=== PATIENT | female | born 1955 | race Asian ===

== ENCOUNTER → 2018-09-18 | Outpatient (CLI) | payer BC | END | disposition home or self-care (01) | LOC: LAB SHORT 15:25 → LAB 15:25 | DX: H66.92 Otitis media, unspecified, left ear (principal) | CPT/HCPCS: 87070; 87205 ==

== ENCOUNTER → 2021-04-05 | Outpatient (CLI) | payer BC | END | disposition home or self-care (01) | LOC: LAB SHORT 13:45 → LAB 13:45 | DX: M54.50 Low back pain, unspecified (principal) | CPT/HCPCS: 87086 ==

== ENCOUNTER → 2024-01-23 | Outpatient (CLI) | payer BC | LOC: LAB 17:27 → LAB SHORT 17:27 | DX: N89.8 Other specified noninflammatory disorders of vagina (principal) | CPT/HCPCS: 87070; 87106; 87205 ==